=== PATIENT | female | born 1975 | race Caucasian/White ===

== ENCOUNTER 2021-04-30 19:03 | Emergency (ER) | payer SELFPAY ==
[~2021-04-30] VITALS: Ht 167.6 cm; Wt 70.0 kg
[2021-04-30] MEDS ORDERED: KETOROLAC 60MG/2ML VIAL IM ONE (21:00)
[2021-04-30] MEDS ORDERED: CYCLOBENZAPRINE 10MG TABLET PO SCH (21:00)
[2021-04-30] MEDS ORDERED: TRAMADOL 50MG TABLET PO ONE (22:00)
[2021-04-30] MEDS ORDERED: CYCL5TAB MT (23:05)
[2021-04-30] MEDS ORDERED: NAPR-1164 MT (23:05)
[2021-04-30 23:10] VITALS: BP 129/71
== END 2021-05-01 00:22 | disposition home or self-care (01) ==
LOC: ER 19:03
DX: S39.012A Strain of muscle, fascia and tendon of lower back, initial encounter (principal); S13.4XXA Sprain of ligaments of cervical spine, initial encounter; V49.49XA Driver injured in collision with other motor vehicles in traffic accident, initial encounter; Y93.89 Activity, other specified; Y92.488 Other paved roadways as the place of occurrence of the external cause
CPT/HCPCS: 72100; 96372; 99283; J1885